=== PATIENT | female | born 1970 | race Caucasian/White ===

== ENCOUNTER 2021-08-28 17:16 | Observation (INO) ==
[2021-08-28] MEDS ORDERED: ALUMINUM/MAGNES/SIMETH MAX STR 30 ML UDCUP PO PRN (17:28)
[2021-08-28] MEDS ORDERED: ACETAMINOPHEN 325 MG TABLET PO PRN (17:28)
[2021-08-28] MEDS ORDERED: MAGNESIUM SULF RIDER 4 GM/100 ML PREMIX IV PRN (17:28)
[2021-08-28] MEDS ORDERED: ZALEPLON 5 MG CAPSULE PO PRN (17:28)
[2021-08-28] MEDS ORDERED: MAGNESIUM SULF RIDER 2 GM/50 ML PREMIX IV PRN ×2 (17:28→17:59)
[2021-08-28] MEDS ORDERED: ENOXAPARIN 40 MG/0.4 ML SYRINGE SUBCUT SCH (17:30)
[2021-08-28] MEDS ORDERED: MORPHINE 2 MG/1 ML SYRINGE IV PRN (17:34)
[2021-08-28] MEDS ORDERED: NITROGLYCERIN SL 0.4 MG TABLET SL PRN (17:58)
[2021-08-28] MEDS ORDERED: POTASSIUM CHLORIDE RIDER 10 MEQ/100 ML PREMIX IV PRN (17:59)
[2021-08-28] MEDS ORDERED: CLORAZEPATE 3.75 MG TABLET PO PRN (18:03)
[2021-08-28 18:29] LABS: Basophils # 0.1 10*3/uL (0.0-0.2); Basophils % 0.7 % (0.0-0.8); Eosinophils # 0.1 10*3/uL (0.0-0.87); Eosinophils % 1.5 % (0.00-10.9); Hematocrit 40.6 VOL% (35.7-47.0); Immature Granulocytes % 0.4 %; Immature Granulocytes Absolute 0.03 #; Lymphocytes # 2.2 10*3/uL (1.4-4.0); Lymphocytes % 27.4 % (21.3-54.2); Mean Corpuscular Volume 90.8 FL (87-102); Mean Platelet Volume 9.9 FL (9.6-12.0); Monocytes % 5.8 % (1.7-12.7); Neutrophils % 64.2 % (38.7-73.9); Platelet Count 291 T/CUMM (130-400); Red Blood Count 4.47 MC/CUMM (3.8-5.5); Red Cell Distribution Width 12.3 % (9.3-17.3); White Blood Count 8.1 T/CUMM (4-12)
[2021-08-28] MEDS: DEXTROSE 5% NACL 0.45% 1,000 ML IV SCH (18:31)
[2021-08-28] MEDS: NITROGLYCERIN 2% OINT 1 INCH/GM PACK TOP SCH (18:32)
[2021-08-28] MEDS: ONDANSETRON 4 MG/2 ML VIAL IV PRN (18:32)
[2021-08-28 18:46] LABS: Alanine Aminotransferase 35 U/L (13-56); Albumin 4.1 G/DL (3.4-5.0); Alkaline Phosphatase 64 U/L (45-117); Aspartate Amino Transferase 20 U/L (0-37); Bilirubin,Total < 0.39 MG/DL (0.20-1.00); Blood Urea Nitrogen 14 MG/DL (7-18); Calcium 8.9 MG/DL (8.5-10.1); Carbon Dioxide 25 MMOL/L (21-32); Estimated Glom Filtration Rate 115 ML/MIN; Glucose 101 MG/DL (74-106); Osmolality,Calculated 275.7 MOS/KG (273-304); Potassium 3.5 MMOL/L (3.5-5.1); Sodium 138 MMOL/L (136-145); Total Protein 7.7 G/DL (6.4-8.2)
[2021-08-28] MEDS ORDERED: POTASSIUM CHLORIDE 20 MEQ TABLET PO PRN (18:51)
[2021-08-28] MEDS ORDERED: ASPIRIN EC 81 MG TABLET PO SCH (19:00)
[2021-08-28] MEDS: PANTOPRAZOLE 40 MG VIAL IV SCH (21:16)
[2021-08-29] MEDS: NITROGLYCERIN 2% OINT 1 INCH/GM PACK TOP SCH ×2 (00:21→06:30)
[2021-08-29] MEDS: DEXTROSE 5% NACL 0.45% 1,000 ML IV SCH (02:57)
[2021-08-29] MEDS ORDERED: ASPIRIN 325 MG TABLET PO ONE (06:30)
[2021-08-29] MEDS ORDERED: diphenhydrAMINE CAP 50 MG CAPSULE PO ONE (06:30)
[2021-08-29] MEDS ORDERED: DIAZEPAM 5 MG TABLET PO ONE (06:30)
[2021-08-29] MEDS ORDERED: NITROGLYCERIN DRIP 50 MG/250 ML BOTTLE IV ONE (06:55)
[2021-08-29] MEDS ORDERED: VERAPAMIL 5 MG/2 ML VIAL ONE (06:55)
[2021-08-29] MEDS ORDERED: LIDOCAINE 1% 20 ML VIAL ONE (06:55)
[2021-08-29] MEDS ORDERED: MIDAZOLAM 2 MG/2 ML VIAL ONE ×2 (07:19→07:28)
[2021-08-29] MEDS ORDERED: fentaNYL 100 MCG/2 ML VIAL ONE (07:20)
[2021-08-29 07:26] LABS: Risk Ratio 4.37
[2021-08-29] MEDS ORDERED: ENOXAPARIN 30 MG/0.3 ML SYRINGE ONE (07:33)
[2021-08-29] MEDS ORDERED: ONDANSETRON 4 MG TABLET PO PRN (08:06)
[2021-08-29] MEDS: PANTOPRAZOLE 40 MG VIAL IV SCH (08:32)
[2021-08-29 11:28] VITALS: BP 105/54
[2021-08-29] MEDS: ONDANSETRON 4 MG/2 ML VIAL IV PRN (12:08)
== END 2021-08-29 12:47 | disposition home or self-care (01) ==
LOC: INTOOBSV 17:37 → N.TELES 17:37
PROVIDERS: ADMIT Internal Medicine Cardiovascular Disease; ATTEND Internal Medicine Cardiovascular Disease
PROC: CLCCHCL (ICD-10-PCS; 2021-08-29 07:45)